=== PATIENT | female | born 1955 | race Caucasian/White ===

== ENCOUNTER 2023-01-31 17:03 | Emergency (ER) | payer OTHER ==
[~2023-01-31] VITALS: Ht 152.4 cm; Wt 56.7 kg
[2023-01-31 17:04] VITALS: BP_SYST 184; PULSE 92; RESP 18; TEMP 97.8; O2SAT 99
[2023-01-31] MEDS ORDERED: DIPHTH,PERTUSS(ACELL),TET VAC 0.5 ML VIAL (Tdap) I.M. ONE (17:15)
[2023-01-31] MEDS ORDERED: OPTH OP ONE (17:15)
[2023-01-31] MEDS ORDERED: PROPARACAINE 0.5% OP ONE (17:15)
[2023-01-31] MEDS ORDERED: OXYCODONE/ACETAMINOPHEN 5-325 TABLET PO ONE (17:15)
[2023-01-31 19:00] VITALS: BP_SYST 184; PULSE 92; RESP 18; TEMP 97.8; O2SAT 99
== END 2023-01-31 19:00 | disposition left against medical advice (07) ==
LOC: SED 17:03
DX: T22.211A Burn of second degree of right forearm, initial encounter (principal); T20.20XA Burn of second degree of head, face, and neck, unspecified site, initial encounter; E11.9 Type 2 diabetes mellitus without complications; Z79.899 Other long term (current) drug therapy; X12.XXXA Contact with other hot fluids, initial encounter; Y93.89 Activity, other specified; Y92.89 Other specified places as the place of occurrence of the external cause; Y99.8 Other external cause status
CPT/HCPCS: 90715; 99291